=== PATIENT | female | born 1945 ===

== ENCOUNTER 2021-05-16 18:50 | Emergency (ER) | payer MEDICARE ==
[~2021-05-16] VITALS: Ht 154.9 cm; Wt 69.9 kg
[2021-05-16] MEDS ORDERED: PREDNISONE 20 M20 MG PO (19:52)
== END 2021-05-16 21:59 | disposition home or self-care (01) ==
LOC: ER1 18:50
DX: Z23 Encounter for immunization (principal); U07.1 COVID-19; J44.1 Chronic obstructive pulmonary disease with (acute) exacerbation; E78.5 Hyperlipidemia, unspecified; E11.9 Type 2 diabetes mellitus without complications; I10 Essential (primary) hypertension; E03.9 Hypothyroidism, unspecified; Z88.0 Allergy status to penicillin; Z88.1 Allergy status to other antibiotic agents
CPT/HCPCS: 71045; 99284; M0243